=== PATIENT | male | born 2000 | race Caucasian/White ===

== ENCOUNTER 2022-03-24 13:55 | Emergency (ER) | payer OTHER, MEDICAID, SELFPAY ==
[2022-03-24 14:05] VITALS: BP 138/73; PULSE 90; RESP 20; TEMP 36.1; O2SAT 99
--- NOTE | 2022-03-24 14:13 | ED.EAR ---
HPI - Ear Problem General Chief complaint: Ear Stated complaint: ear pain Time Seen by Provider: 03/24/22 14:00 Source: patient and RN notes reviewed History of Present Illness HPI Narrative: Patient is a 21-year-old male who presents to Urgent Care with his mother with complaints of left ear pain. States that it started last night. Patient has been taking ibuprofen for the pain. Also reports of a mild sore throat last night. Denies any nausea, vomiting or known fever. Reports of drainage from the left ear. No other acute complaints. No acute distress noted. Mother and patient aware of the plan of care. Some parts of this dictation were generated by voice recognition software and may contain typographical and/or grammatical inaccuracies. Related Data Home Medications Medication Instructions Recorded Confirmed citalopram 40 mg tablet 40 mg PO DAILY 03/24/22 03/24/22 clonidine HCl 0.1 mg tablet 0.1 mg PO TID 03/24/22 03/24/22 fenofibrate 54 mg tablet 54 mg PO BID 03/24/22 03/24/22 naltrexone 8 mg-bupropion 90 mg 1 tablet PO BID 03/24/22 03/24/22 tablet,extended release (Contrave) Allergies Allergy/AdvReac Type Severity Reaction Status Date / Time No Known Allergies Allergy Verified 03/24/22 14:15 Review of Systems Review of Systems: CONSTITUTIONAL: Denies fever, chills, or sweats. EYES: Denies visual changes, redness, or discharge. ENT: Reports of left otalgia with drainage and sore throat CARDIOVASCULAR: Denies chest pain, palpitations, or edema. RESPIRATORY: Denies cough or dyspnea. GASTROINTESTINAL: Denies abdominal pain, nausea, vomiting, or diarrhea. GENITOURINARY: Denies dysuria or hematuria. SKIN: Denies rash or itching. MUSCULOSKELETAL: Denies back pain, joint pain, or myalgia. NEUROLOGIC: Denies headache, numbness, or weakness. All other systems reviewed are negative, except as documented in HPI. PMFSH Comments At the time of my signature, I reviewed and agree with the nursing past medical, surgical, social, and family history. There is no relevant family history pertinent to the patient complaint. Exam Narrative: GENERAL: This is a well-nourished, well-developed patient, in no apparent distress. HEAD: normocephalic, atraumatic. EYES: PERRL. Sclera clear/white. Vision is grossly intact. EARS: External ears normal, right auditory canals clear and without drainage, spontaneous rupture with erythema to the left TM with mild to moderate yellow drainage. Right TM normal without perforation. Hearing grossly intact. NOSE: External nose normal with no obvious nasal discharge, nares without redness, no rhinorrhea. THROAT: Mucous membranes moist, mild to moderate bilateral tonsillar edema with mild erythema and moderate postnasal drainage NECK: Neck supple, non-tender without lymphadenopathy CARDIOVASCULAR: Regular rate and rhythm without murmurs, gallops, or rubs. RESPIRATORY: Clear to auscultation. Breath sounds equal bilaterally. No wheezes, rales, or rhonchi. SKIN: warm, intact with no suspicious lesions or rash, good texture and turgor. NEURO: awake, alert, and oriented to person, place and time. There were no obvious focal neurologic abnormalities. EXTREMITIES: No clubbing, cyanosis, or edema. Course Course Level of Care: Express Care Visit Vital Signs Vital signs: Vital Signs Temperature 97 F L 03/24/22 14:05 Pulse Rate 90 03/24/22 14:05 Respiratory Rate 20 03/24/22 14:05 Blood Pressure 138/73 03/24/22 14:05 Pulse Oximetry 99 03/24/22 14:05 Oxygen Delivery Room Air 03/24/22 14:05 Temperature 97 F L 03/24/22 14:05 Pulse Rate 90 03/24/22 14:05 Respiratory Rate 20 03/24/22 14:05 Blood Pressure 138/73 03/24/22 14:05 Pulse Oximetry 99 03/24/22 14:05 Oxygen Delivery Room Air 03/24/22 14:05 Reviewed Medical Decision Making MDM Narrative Medical decision making narrative: Advised mother to have the patient complete his oral antibiotic regimen as pres
== END 2022-03-24 14:40 | disposition home or self-care (01) ==
PROVIDERS: Emergency Provider Nurse Practitioner Family
DX: H66.92 Otitis media, unspecified, left ear (principal); Q90.9 Down syndrome, unspecified; I10 Essential (primary) hypertension; F41.9 Anxiety disorder, unspecified
CPT/HCPCS: 99213; G0463

== ENCOUNTER 2023-01-15 11:00 | Emergency (ER) | payer OTHER, MEDICAID, SELFPAY ==
[2023-01-15 11:08] VITALS: BP 131/69; PULSE 85; RESP 18; TEMP 36.2; O2SAT 97
--- NOTE | 2023-01-15 11:17 | ED.URI ---
HPI - URI/Sore Throat General Chief Complaint: Upper Respiratory Infection Stated Complaint: Headache/Congestion/Cough Time Seen by Provider: 01/15/23 11:17 Source: patient, RN notes reviewed and old records reviewed Mode of arrival: ambulatory Limitations: no limitations History of Present Illness HPI Narrative: 22-year-old male patient presents to [facility] with complaints cough, congestion, sore throat, myalgia, fevers this started on . Mom states multiple family members have been sick. Patient denies shortness of breath, chest pain, dizziness, weakness MD elicited complaint: cough, sore throat and nasal congestion Related Data Home Medications Medication Instructions Recorded Confirmed citalopram 40 mg tablet 40 mg PO DAILY 03/24/22 01/15/23 clonidine HCl 0.1 mg tablet 0.3 mg PO QHS 03/24/22 01/15/23 fenofibrate 54 mg tablet 54 mg PO BID 03/24/22 01/15/23 naltrexone 8 mg-bupropion 90 mg 2 tablet PO BID 03/24/22 01/15/23 tablet,extended release (Contrave) loratadine 10 mg tablet 10 mg PO DAILY 01/15/23 01/15/23 melatonin 5 mg tablet 5 mg PO HS PRN Sleep 01/15/23 01/15/23 omeprazole 20 mg tablet,delayed 20 mg PO DAILY 01/15/23 01/15/23 release Allergies Allergy/AdvReac Type Severity Reaction Status Date / Time No Known Allergies Allergy Verified 01/15/23 11:43 Review of Systems Constitutional: Constitutional: Reports as per HPI, Reports body ache(s) and Reports fatigue Eyes: Eyes: Reports no additional eye complaints ENT: Reports as per HPI, Reports nasal congestion, Reports nasal discharge and Reports sore throat Cardiovascular: Cardiovascular: Reports no additional cardiovascular complaints Respiratory: Respiratory: Reports as per HPI, Reports chest congestion and Reports cough Neurologic: Reports system reviewed and no additional complaints, except as documented PMFSH Comments At the time of my signature, I reviewed and agree with the nursing past medical, surgical, social, and family history. There is no relevant family history pertinent to the patient complaint. Exam Const: General: cooperative, healthy appearing, no acute distress and well nourished Nutritional Appearance: well nourished Orientation/consciousness: patient oriented x3 Limitations: no limitations HENMT: Head: normal to inspection and normocephalic Ears: external ears normal, TM's normal bilaterally, mastoids normal and Abnormal EAC present Face/Nose/Sinus: normal facial exam Face and sinus: normal facial exam Mouth: Yes Normal oral and palatal mucosa present, Yes oropharynx normal and Yes moist mucous membranes Throat: uvula midline, abnormal tonsil bilateral erythema and exudates, posterior oropharynx abnormal erythema and exudates and no uvular edema Eyes: General: appearance normal, both eyes and all related structures Sclera: sclerae normal Pupils: Equal, round and reactive pupils present Resp: Effort & Inspection: normal respiratory effort, able to speak in complete sentences, no audible wheezes, no cough, no respiratory distress and no retractions Auscultation: clear to auscultation bilaterally, no crackles, no rales, no rhonchi and no wheezes Cardio: Rate: regular rate Rhythm: regular rhythm Skin: General skin exam: normal color and no rashes or lesions noted Neuro: General: patient oriented x3 Cranial nerves: Yes Equal, round and reactive pupils present Psych: Appearance: grossly normal Course Course Emergency Course: Some parts of this dictation were generated by voice recognition software and may contain typographical and/or grammatical inaccuracies. Level of Care: Express Care Visit Vital Signs Vital signs: Vital Signs Temperature 97.1 F L 01/15/23 11:08 Pulse Rate 85 01/15/23 11:08 Respiratory Rate 18 01/15/23 11:08 Blood Pressure 131/69 01/15/23 11:08 Pulse Oximetry 97 01/15/23 11:08 Oxygen Delivery Room Air 01/15/23 11:08 Temperature 97.1 F L 01/15/23 11:
== END 2023-01-15 11:45 | disposition home or self-care (01) ==
PROVIDERS: Emergency Provider Registered Nurse
DX: J10.1 Influenza due to other identified influenza virus with other respiratory manifestations (principal); J02.0 Streptococcal pharyngitis; Z20.822 Contact with and (suspected) exposure to COVID-19; Q90.9 Down syndrome, unspecified; I10 Essential (primary) hypertension; F41.9 Anxiety disorder, unspecified
CPT/HCPCS: 87426; 87804; 87880; 99213; C9803; G0463

== ENCOUNTER 2023-04-04 11:42 | Emergency (ER) | payer OTHER, MEDICAID, SELFPAY ==
[2023-04-04 11:52] VITALS: BP 146/60; PULSE 85; RESP 20; TEMP 36.3; O2SAT 99
--- NOTE | 2023-04-04 12:12 | ED.GENADULT ---
HPI - General Adult General Chief complaint: Upper Respiratory Infection Stated complaint: Sore Throat Source: patient, RN notes reviewed and old records reviewed Mode of arrival: ambulatory Limitations: no limitations History of Present Illness HPI narrative: 22-year-old male patient presents to [facility], accompanied by mother, with complaint sore throat, congestion, fever that started last p.m.. Mom denies any other symptoms. Mom has not given anything for pain. Related Data Home Medications Medication Instructions Recorded Confirmed citalopram 40 mg tablet 40 mg PO DAILY 03/24/22 04/04/23 clonidine HCl 0.1 mg tablet 0.3 mg PO QHS 03/24/22 04/04/23 fenofibrate 54 mg tablet 54 mg PO BID 03/24/22 04/04/23 naltrexone 8 mg-bupropion 90 mg 2 tablet PO BID 03/24/22 04/04/23 tablet,extended release (Contrave) loratadine 10 mg tablet 10 mg PO DAILY 01/15/23 04/04/23 melatonin 5 mg tablet 5 mg PO HS PRN Sleep 01/15/23 04/04/23 omeprazole 20 mg tablet,delayed 20 mg PO DAILY 01/15/23 04/04/23 release Allergies Allergy/AdvReac Type Severity Reaction Status Date / Time No Known Allergies Allergy Verified 01/15/23 11:43 Review of Systems Constitutional: Constitutional: Reports no additional constitutional complaints, Denies body ache(s), Denies chills, Denies fatigue, Reports fever(s) and Denies headache(s) Eyes: Eyes: Reports no additional eye complaints and Denies blurry vision ENT: Reports system reviewed and no additional complaints, except as documented, Denies vertigo, Denies dizziness, Denies ear discharge, Denies otalgia, Denies facial pain, Denies headache(s), Denies nasal congestion, Reports nasal discharge, Denies sinus pain, Denies sinus pressure and Reports sore throat Cardiovascular: Cardiovascular: Reports no additional cardiovascular complaints, Denies chest pain, Denies chest pain at rest, Denies rapid heart rate and Denies dyspnea Respiratory: Respiratory: Reports no additional respiratory complaints, Denies chest congestion, Denies cough, Denies pain on inspiration, Denies pain with cough and Denies dyspnea Gastrointestinal: Gastrointestinal: Denies abdominal pain, Denies diarrhea, Denies nausea and Denies vomiting Integumentary/Breasts: Skin/Breast: Denies rash Neurologic: Reports system reviewed and no additional complaints, except as documented, Denies vertigo, Denies dizziness and Denies headache(s) Endocrine: Endocrine: Denies fatigue PMFSH Comments At the time of my signature, I reviewed and agree with the nursing past medical, surgical, social, and family history. There is no relevant family history pertinent to the patient complaint. Exam Const: General: cooperative, healthy appearing, no acute distress and well nourished Nutritional Appearance: well nourished Orientation/consciousness: patient oriented x3 Limitations: no limitations HENMT: Head: normal to inspection and normocephalic Ears: external ears normal, TM's normal bilaterally, EAC's normal and mastoids normal Face/Nose/Sinus: Normal nasal mucous membranes and turbinates present and normal facial exam Face and sinus: normal facial exam Mouth: Yes Normal oral and palatal mucosa present, Yes oropharynx normal and Yes moist mucous membranes Throat: tonsils normal, uvula midline, posterior oropharynx abnormal erythema and no uvular edema Eyes: General: appearance normal, both eyes and all related structures Sclera: sclerae normal Pupils: Equal, round and reactive pupils present Resp: Effort & Inspection: normal respiratory effort, able to speak in complete sentences, no audible wheezes, no cough, no respiratory distress and no retractions Auscultation: clear to auscultation bilaterally, no crackles, no rales, no rhonchi and no wheezes Cardio: Rate: regular rate Rhythm: regular rhythm Skin: General skin exam: normal color and no rashes or lesions noted Neuro: General: patient oriented x3 Cranial nerves: Yes Equal, round and
== END 2023-04-04 12:35 | disposition home or self-care (01) ==
PROVIDERS: Emergency Provider Registered Nurse
DX: B34.9 Viral infection, unspecified (principal); Z20.822 Contact with and (suspected) exposure to COVID-19; Q90.9 Down syndrome, unspecified; I10 Essential (primary) hypertension; F41.9 Anxiety disorder, unspecified
CPT/HCPCS: 87081; 87426; 87804; 87880; 99213; G0463

== ENCOUNTER 2023-07-29 10:45 | Emergency (ER) | payer OTHER, MEDICAID, SELFPAY ==
[2023-07-29 10:52] VITALS: BP 135/82; PULSE 80; RESP 18; TEMP 36.1; O2SAT 98
--- NOTE | 2023-07-29 11:12 | ED.URI ---
HPI - URI/Sore Throat General Chief Complaint: Upper Respiratory Infection Stated Complaint: cold symptoms Time Seen by Provider: 07/29/23 11:05 Source: patient, family, RN notes reviewed and old records reviewed Mode of arrival: ambulatory Limitations: no limitations History of Present Illness HPI Narrative: 22 year old male who has down syndrome presents to express care accompanied by mother with one week duration of runny nose,sore throat, cough, intermittent fevers up to 102F. Mother reports that patient has had complaints of chills and hot flashes and fatigue for one week duration. Mother reports that she has treated son with Tylenol and Ibuprofen , cold and cough medications and he takes daily Claritin MD elicited complaint: cough, sore throat, rhinorrhea and nasal congestion Pertinent past history: other (sinus problems) Onset (ago): week(s) (1) Consistency: progressively worsening Severity: moderate Able to tolerate fluids by mouth: Yes Treatments prior to arrival: acetaminophen, ibuprofen, cold medicine and other (Claritin) Related Data Home Medications Medication Instructions Recorded Confirmed citalopram 40 mg tablet 40 mg PO DAILY 03/24/22 07/29/23 clonidine HCl 0.1 mg tablet 0.3 mg PO QHS 03/24/22 07/29/23 fenofibrate 54 mg tablet 54 mg PO BID 03/24/22 07/29/23 naltrexone 8 mg-bupropion 90 mg 2 tablet PO BID 03/24/22 07/29/23 tablet,extended release (Contrave) loratadine 10 mg tablet 10 mg PO DAILY 01/15/23 07/29/23 melatonin 5 mg tablet 5 mg PO HS PRN Sleep 01/15/23 07/29/23 omeprazole 20 mg tablet,delayed 20 mg PO DAILY 01/15/23 07/29/23 release Allergies Allergy/AdvReac Type Severity Reaction Status Date / Time No Known Allergies Allergy Verified 07/29/23 11:06 Review of Systems Review of Systems: CONSTITUTIONAL:Positive for malaise, chills, sweats, or fever. EYES: Denies visual changes, redness, or discharge. ENT: Reports rhinorrhea, congestion, sinus pain,no otalgia and positive for sore throat. CARDIOVASCULAR: Denies chest pain, palpitations, or edema. RESPIRATORY: Reports cough.? Denies dyspnea. GASTROINTESTINAL: Denies abdominal pain, nausea, vomiting, diarrhea SKIN: Denies rash or itching. MUSCULOSKELETAL: Denies myalgia. NEUROLOGIC: Denies headache. All systems reviewed & are unremarkable except as noted in HPI and below PMFSH Past Medical History Medical History (Updated 07/30/23 @ 16:53 by Pepper Bear NP) Down syndrome GERD (gastroesophageal reflux disease) Hypertension Tourette's Surgical History Surgical History (Updated 07/30/23 @ 16:50 by Pepper Bear NP) H/O adenoidectomy History of placement of ear tubes Social History Social History Smoking status: Never smoker Alcohol intake: never Substance use type: does not use Living arrangements: with family Gender identity (if verbalized by the patient): Male Comments At time of signature, agree with nursing past medical, surgical, social and family history. There is no relevant family history pertinent to the presenting complaint Exam Narrative: GENERAL: Well-appearing, well-nourished, and in no acute distress. HEAD: Normocephalic EYES: PERRLA, conjunctivae clear ENT: Nares clear, turbinates edematous and erythematous, clear discharge. Mucous membranes moist. TM pearly loyd with dull light reflex bilaterally; no tragal tenderness. Oropharynx erythematous without lesions. Tonsils red enlarged and with white exudates, no drooling, no hoarseness, no trismus, uvula midline.painful swallowing NECK: Supple. No lymphadenopathy CHEST: Clear to auscultation, breath sounds equal. No wheezing, rhonchi, rales, or stridor. No respiratory distress, speaks in full sentences.cough with no dyspnea noted SAO2 98% on room air HEART: Regular rate and rhythm. No murmur heard. SKIN: Warm, dry, no rash. NEURO: Alert and oriented
== END 2023-07-29 11:43 | disposition home or self-care (01) ==
PROVIDERS: Emergency Provider Registered Nurse; PCP Physician Assistant
DX: J03.90 Acute tonsillitis, unspecified (principal); Q90.9 Down syndrome, unspecified; K21.9 Gastro-esophageal reflux disease without esophagitis; I10 Essential (primary) hypertension
CPT/HCPCS: 87081; 87880; 99213; G0463